=== PATIENT | male | born 1980 | race Two or more races ===

== ENCOUNTER 2017-12-02 09:55 | Inpatient (IN) | payer OTHER ==
[~2017-12-02] VITALS: Ht 177.8 cm; Wt 84.8 kg
--- NOTE | 2017-12-02 16:10 | NUR ---
Pre-assessment note: Assessed pt in intake office, pt is alert and oriented and main source of information. pt's V/S WNL. explained unit procedures and protocols, pt verbalizing understanding.
[2017-12-02 16:13] VITALS: BP 130/78
[2017-12-02] MEDS ORDERED: CYCL10TA9 PO (16:54)
[2017-12-02] MEDS ORDERED: VALA100026 PO (16:54)
[2017-12-02] MEDS ORDERED: ACET1TAB23 PO (16:54)
[2017-12-02] MEDS ORDERED: TRAZ-182 PO (16:54)
[2017-12-02] MEDS ORDERED: CITA10TA9 PO (16:54)
[2017-12-02] MEDS ORDERED: ALPR0.25 PO (16:54)
[2017-12-02] MEDS: CITALOPRAM 10 MG TABLET PO SCH (18:00)
[2017-12-02 18:05] LABS: *AMPHETAMINE, URINE NEGATIVE (NEGATIVE); *BARBITURATE, URINE NEGATIVE (NEGATIVE); *CANNABINOID, URINE NEGATIVE (NEGATIVE); *COCCAINE, URINE NEGATIVE (NEGATIVE); *OPIATE, URINE NEGATIVE (NEGATIVE); *PHENCYCLIDINE SCREEN,URINE NEGATIVE (NEGATIVE)
--- NOTE | 2017-12-02 18:10 | NUR ---
MEDICATION REFUSE Pt refused to take Celexa 10mg as ordered. Pt states he took his medication this morning. Will continue to monitor.
[2017-12-02] MEDS ORDERED: MAGNESIUM HYDROXIDE 30 ML LIQUID UDC PO PRN (18:15)
[2017-12-02] MEDS ORDERED: diphenhydrAMINE 50 MG CAPSULE PO PRN (18:15)
[2017-12-02] MEDS ORDERED: ONDANSETRON ODT 4 MG TAB.RAPDIS SL PRN (18:15)
[2017-12-02] MEDS ORDERED: ONDANSETRON 4 MG/2 ML VIAL IM PRN (18:15)
[2017-12-02] MEDS ORDERED: LORAZEPAM 2 MG/1 ML VIAL IM PRN (18:15)
[2017-12-02] MEDS ORDERED: HYDROXYZINE PAMOATE 25 MG CAPSULE PO PRN (18:15)
[2017-12-02] MEDS ORDERED: DICYCLOMINE HCL 20 MG TABLET PO PRN (18:15)
[2017-12-02] MEDS ORDERED: MIRALAX 17 GM POWD.PACK PO PRN (18:15)
[2017-12-02] MEDS ORDERED: LOPERAMIDE HCL 2 MG CAPSULE PO PRN ×2 (18:15)
[2017-12-02] MEDS ORDERED: CLONIDINE HCL 0.1 MG TABLET PO PRN (18:15)
[2017-12-02] MEDS ORDERED: MAG HYDROX/AL HYDROX/SIMETH 30 ML LIQUID UDC PO PRN (18:15)
[2017-12-02] MEDS ORDERED: LORAZEPAM 1 MG TABLET PO PRN ×2 (18:15)
[2017-12-02] MEDS ORDERED: ACETAMINOPHEN 325 MG TABLET PO PRN (18:15)
--- NOTE | 2017-12-02 18:57 | NUR ---
ADMISSION NOTE Pt is a 37 yr old male, AA&Ox4. Pt is presenting himself to [facility] for alcohol use. Pt is noted with anxiety m/b pt is observed fidgety and facial flushed is noted. Pt states of having a glass of vodka with cranberry on the plane prior to admission and denies any symptoms of withdrawal at this time. Pt states his typical withdrawal symptoms are anxiety, agitation, sweats, chills, headache and tremors. Pt denies any SI/HI. Pt denies any 5150; DTs or induced withdrawal seizures. Body check is complete. Skin is intact, warm and moist to touch. Lung sounds are clear bilaterally. Pt states of PMH of Migraine, Insomnia, Anxiety, Depression, Herpes Simplex 1 and Sx Hx of Appendectomy. Home medication was reconciled. Pt denies any PCP at times, states he just moved out to [place] and does not have a PCP. Pt states of having allergies to Aspirin and follows a regular diet. SUBSTANCE HX: 1. ETOH- Pt states he first started drinking socially at the age of [age] years old but then became a problem 5 years ago. Pt states he tried to get sober in April 11, 2016 and maintain sobriety for 2.5 years then relapsed 1 week ago. Pt states he was drinking 6 glasses of vodka daily for 1 week. Last drink was today on 12/02/17, pt states of having 1 glass of vodka cranberry on the plane prior to admission. 2. Xanax - Pt states he was prescribed Xanax for his anxiety 3 years ago. Pt states he was taking 0.25mg PO 3x a week for the past 3 years. Last use was on 12/01/17, pt states of taking 0.25mg PO at night. Pt states he began drinking on a daily basis due to stress and frustration in his relationship. Pt states, I have stress at work and then I have to go home to my partner who creates more stress and frustration, I dont need that. Pt states his triggers are stress and frustration in his relationship and states is was the cause of his relapse. Pt states this is his second time trying to get sober. He was last at [facility] for 30 days inpatient on April 15-May 16 2016 and maintain sobriety for 2.5 years. Pt states, Hopefully this is it Report to Dr. Mccracken with new orders noted and carried out. Pt was educated on plan of care and medication regimen. Pt was able to verbalize understanding. Pt was oriented around unit and equipment in room. Pt is on fall and seizure precautions. Call light is within reach.
[2017-12-02 19:07] LABS: BASOPHILS % (AUTO) 0.4 % (0.0-2.0); EOSINOPHILS # (AUTO) 0.1 K/uL (0.0-0.7); EOSINOPHILS % (AUTO) 1.3 % (0.0-7.0); HEMATOCRIT 41.5 % (36.7-47.1); HEMOGLOBIN 14.1 g/dL (12.5-16.3); LYMPHOCYTES # (AUTO) 3.1 K/uL (20.0-40.0); LYMPHOCYTES % (AUTO) 45.2 % (20.5-51.5); MEAN CORPUSCULAR HEMOGLOBIN 29.9 uug (23.8-33.4); MEAN CORPUSCULAR HGB CONC 34 g/dL (32.5-36.3); MEAN CORPUSCULAR VOLUME 87.9 fL (73.0-96.2); MONOCYTES # (AUTO) 0.6 K/uL (2.0-10.0); NEUTROPHILS # (AUTO) 3.1 K/uL (1.8-8.9); NEUTROPHILS % (AUTO) 45.1 % (38.5-71.5); PLATELET COUNT (AUTO) 245 K/uL (152-348); RED BLOOD CELL COUNT(AUTO) 4.72 MIL/uL (4.06-5.63); WHITE BLOOD COUNT (AUTO) 6.9 K/uL (3.6-10.2)
--- NOTE | 2017-12-02 19:10 | NUR ---
Start of Shift Patient Received. Patient is noted in bed awake and watching TV. Breathing even and non labored. Patient was admitted for recent relapse of ETOH and prescribed benzo use. He is currently receiving PRN medications for increased signs and symptoms of withdrawal. Patient currently denies any current signs and symptoms of withdrawal. No CIWA assessment endorsed. All needs attended to promptly. Will continue plan of care as ordered.
[2017-12-02 19:21] LABS: ETHANOL < 3 MG/DL (0-0)
[2017-12-02 19:24] LABS: ALANINE AMINOTRANSFERASE 29 U/L (16-63); ALKALINE PHOSPHATASE 85 U/L (50-136); AMYLASE 65 U/L (25-115); ASPARTATE AMINOTRANSFERASE 15 U/L (15-37); BILIRUBIN,TOTAL 0.5 mg/dL (0.2-1.0); CARBON DIOXIDE 29 mmol/L (21-32); CHLORIDE 104 mmol/L (98-107); CREATININE 0.9 mg/dL (0.6-1.3); GLUCOSE 108 mg/dL (74-106); LIPASE 166 U/L (73-393); MAGNESIUM 2.2 mg/dL (1.8-2.4); POTASSIUM 3.8 mmol/L (3.5-5.1); TOTAL PROTEIN, SERUM 7.3 g/dL (6.4-8.2); UREA NITROGEN, BLOOD 18 mg/dL (7-18)
[2017-12-02 20:30] VITALS: BP 125/72
[2017-12-02] MEDS: TRAZODONE 50 MG TABLET PO SCH (21:00)
[2017-12-02] MEDS ORDERED: THIAMINE HCL 200 MG/2 ML VIAL IM ONE (21:00)
--- NOTE | 2017-12-02 21:21 | NUR ---
Clarification of ETOH Use Patient was able to clarify his vodka use and states "I first started drinking on 11/24/17. I then went to work for two days. On Wednesday and Wednesday I drank. Then I went to work again. I did not drink again until today." He is also able to clarify that he was not drinking on the job only while away from work due to increased stress between him and his partner. Patient states "I was drinking 6 1 oz only on the days I was drinking. But I noticed the trend and I had to stop before it got worse." ETOH-Vodka: drinking 6-1oz bottles daily x4 days between 11/24/17 to 12/02/17. last drink noted just prior to arrival to admission to [facility].
[2017-12-03 00:33] VITALS: BP 97/64
[2017-12-03 04:28] VITALS: BP 101/59
--- NOTE | 2017-12-03 07:16 | NUR ---
End of Shift Patient is in bed sleeping. Breathing even and non labored. Patient is currently receiving PRN medications for increased signs and symptoms of withdrawal. Patient requested for routine dose of trazodone to be administered at a later time and then noted to fall asleep without medication needed. Last noted CIWA 2. He was noted to sleep a total of 7 hours. All needs attended to promptly. Will continue plan of care as ordered.
--- NOTE | 2017-12-03 07:30 | NUR ---
Start of Shift: Patient is a 37 yr old male who was admitted to [facility] on 12/02/17 for a medically supervised withdrawal from Alcohol ( Vodka) He is on PRN medications at this time, no PRN medication were requested or required on PM shift. he slept for 7+ hours and last CIWA was 2. He is asleep in bed at this time, breathing even and unlabored. Continue to follow MD plan of care and offer support as needed.
[2017-12-03 08:00] VITALS: BP 124/68
--- NOTE | 2017-12-03 08:30 | NUR ---
PRN Ativan 1mg po given for anxiety/agitation, flushed clammy skin and restlessness CIWA 9
[2017-12-03] MEDS: FOLIC ACID 1 MG TABLET PO SCH (08:33)
[2017-12-03] MEDS: CITALOPRAM 10 MG TABLET PO SCH (08:33)
[2017-12-03] MEDS: THIAMINE HCL 100 MG TABLET PO SCH (08:33)
[2017-12-03] MEDS: MULTIVITAMINS,THERAPEUTIC TABLET PO SCH (08:34)
--- NOTE | 2017-12-03 08:35 | NUR ---
PPD PLACED Left F/A
[2017-12-03] MEDS ORDERED: TUBERCULIN,PURIF.PROT.DERIV. 5 TU/0.1 ML TEST ID ONE (09:00)
--- NOTE | 2017-12-03 09:20 | NUR ---
LIZZ 9 Patient presents with moderate anxiety and agitation, feeling of fullness in the head, tremors and flushed skin Addendum: 12/03/17 at 8164 by GEORGIE LING RN LIZZ @[phone]
--- NOTE | 2017-12-03 09:30 | NUR ---
PRN Reassess Ativan effective, patient is less anxious and restless, CIWA 6, continue to monitor
[2017-12-03 12:00] VITALS: BP 128/82
--- NOTE | 2017-12-03 12:00 | NUR ---
WA 9 Patients withdrawal symptoms include headache, bilateral hand tremors , restlessness and anxiety
--- NOTE | 2017-12-03 16:00 | NUR ---
CIWA 7 Patient presents with headache and restlessness, he has anxiety and decreased energy.
[2017-12-03 17:00] VITALS: BP 130/79
--- NOTE | 2017-12-03 18:49 | NUR ---
End Of Shift: Patient is a 37 yr old male who was admitted to [facility] on 12/02/17 or a medically supervised withdrawal from Alcohol ( Vodka). He is on PRN medications and will be discharged tomorrow 12/04/17 to " [facility] ". PRN medication given on this shift : Ativan 1MG PO. His withdrawal symptoms include headache, lethargy, anxiety and agitation. His last CIWA was 7 @ 1600. He had a fluid intake of 2000 ML, 4 voids and 1 BM. He has attended group today and is encouraged to learn new coping skills to maintain his sobriety. Continue to follow MD plan of care and offer support as needed. Endorsed to marketing co op.
--- NOTE | 2017-12-03 19:10 | NUR ---
Start of Shift Patient Received. Patient is noted in the activities room participating in a group meeting. Per endorsement, patient is set for discharge tomorrow 12/04/17 to [facility]. Patient received PRN Ativan 1mg for increased CIWA with medication noted to be effective. Last noted CIWA 7. All needs attended to promptly. Will continue plan of care as ordered.
[2017-12-03 20:30] VITALS: BP 112/57
[2017-12-03] MEDS: TRAZODONE 50 MG TABLET PO SCH (21:54)
[2017-12-04 00:36] VITALS: BP 107/58
[2017-12-04 04:15] VITALS: BP 97/51
--- NOTE | 2017-12-04 07:03 | NUR ---
End of Shift Patient is noted in bed sleeping. Breathing even and non labored. Patient is set for discharge today 12/04/17 to [facility]. No PRN Medications administered. Patient noted to sleep a total of 7 hours. Last noted CIWA 5. All needs attended to promptly. Will continue plan of care as ordered.
--- NOTE | 2017-12-04 07:45 | NUR ---
Start of shift note; Received report from night nurse. Patient is a 37 year old male admitted on 12/02/17 for ETOH/Benzodiazepine withdrawal. Patient was placed on PRN medications to help reduce s/s of withdrawal. Patient is AOX4, presented with anxiety and muscle aches. Patient is scheduled to for discharge today to be transferred to [facility] treatment. Patient slept for 7 hours, last CIWA reported was 5 per endorsement. All safety measures secured. Will continue to monitor patient.
[2017-12-04 08:00] VITALS: BP 125/72
[2017-12-04] MEDS: THIAMINE HCL 100 MG TABLET PO SCH (08:30)
[2017-12-04] MEDS: FOLIC ACID 1 MG TABLET PO SCH (08:30)
[2017-12-04] MEDS: MULTIVITAMINS,THERAPEUTIC TABLET PO SCH (08:30)
[2017-12-04] MEDS ORDERED: CITALOPRAM 10 MG TABLET PO SCH (09:00)
[2017-12-04] MEDS ORDERED: CITALOPRAM 20 MG TABLET PO SCH (09:00)
[2017-12-04 09:08] LABS: HEPATITIS B SURFACE AG Negative (Negative)
--- NOTE | 2017-12-04 09:40 | NUR ---
Discharge note; Patient is AOX4, patient is scheduled for discharge to be transferred to [facility]. Patient is medically cleared by .All valuables, belongings and medications returned to patient. Patient's PPD skin test is due to be read tomorrow. Instructed patient to notify staff at the Treatment Center about upcoming PPD skin test reading, PPD record given to patient, patient verbalized understanding. Patient denies S/I and H/I. Patient left the facility at exactly 0940 on 12/04/17. Patient completed treatment without any adverse reaction. Met all needs.
== END 2017-12-04 09:40 | disposition other institution (70) | DRG 897 ==
LOC: SRC 16:17
PROVIDERS: ADMIT Family Medicine Addiction Medicine; ATTEND Family Medicine Addiction Medicine
DX: F10.239 Alcohol dependence with withdrawal, unspecified (principal); G89.29 Other chronic pain; M54.5 Low back pain; G43.909 Migraine, unspecified, not intractable, without status migrainosus; G47.00 Insomnia, unspecified; Z81.8 Family history of other mental and behavioral disorders; B00.1 Herpesviral vesicular dermatitis; Z79.899 Other long term (current) drug therapy; Y90.9 Presence of alcohol in blood, level not specified
CPT/HCPCS: 36415; 70030-TC; 80307; 83690; 83735; 85025; 86580; 86592; 86705; 86803; 87340; 87806; A4663; G0480